=== PATIENT | male | born 1945 | race Caucasian/White ===

== ENCOUNTER → 2018-03-10 | Outpatient (CLI) | payer OTHER, BC ==
[~2018-03-10] MED LIST: ALEVE220 M1 PO; ALEVE220 MG PO; ASPIRIN325 PO; CELEBREX 200 M200 M1 PO; CELEBREX PO; CIPROFLOXACIN500 M1 PO; CIPROFLOXACIN750 MG PO; COLACE100 MG PO; COUMADIN 2 MG TA2 M1 PO; COUMADIN 5 MG TA5 M1 PO; DILTIAZEM ER120 M1 PO; DILTIAZEM ER240 MG PO; FISH OIL 1,0001 EAC5 PO; FLAGYL500 MG PO; HYDROCODONE-AP1 EAC6 PO; LORAZEPAM 1 MG T1 M1 PO; NABUMETONE 750750 M1 PO; NORCO 5-325 TA1 EACH PO; ONDANSETRON HCL4 M2 PO; OXYCONTIN10 M1 PO; PROPAFENONE 22225 M1 PO; SIMVASTATIN10 MG PO; TOPROL XL50 MG PO; TYLENOL325 MG PO; ZOFRAN4 MG PO
== END ==
LOC: NUC 07:36
DX: R06.09 Other forms of dyspnea (principal); R07.89 Other chest pain